=== PATIENT | female | born 1990 | race Caucasian/White ===

== ENCOUNTER 2018-02-22 16:39 | Emergency (ER) | payer SELFPAY, OTHER ==
[2018-02-22] MEDS: KETOROLAC 60 MG/2 ML INJ. IM (18:00)
== END 2018-02-22 18:14 | disposition home or self-care (01) ==
LOC: ER 18:14
DX: J06.9 Acute upper respiratory infection, unspecified (principal); K08.89 Other specified disorders of teeth and supporting structures
CPT/HCPCS: 96372; 99283; J1885